=== PATIENT | male | born 1975 | race Caucasian/White ===

== ENCOUNTER 2018-11-08 15:26 | Emergency (ER) | payer MEDICARE, MEDICAID ==
[2018-11-08] MEDS ORDERED: Nicotine Inhaler* 10 MG AMP INH PRN (15:57)
--- NOTE | 2018-11-08 16:13 | ED ---
HPI Chest Pain - HPI Summary HPI Summary: A 43 y/o male presents to the ED c/o left-sided chest pain reaching 7/10 in severity. In the ED room, the patient has a pulse of 78 BPM, O2 saturation of 98 %, and blood pressure of 146/88. As per triage, "intermittent chest pain, points to sternal area. states he has had this before but has never been this bad. denies any other related symptoms. no cardiac history". According to the patient, he has been experiencing chest pain intermittently, lasting 10-20 seconds. Walking around alleviates his pain. He noted that he occasional hears voices because his medications were lowered. He further noted that he spoke to a counselor about it, in which his counselor stated that if it is not bothering him (which they are not) he will be okay. The voices do not tell him to hurt himself or anyone around him. They tell him to go brush his teeth when he doesn' t. Patient thinks he is anxious. PMHx of no DM, HTN, or HLD (seem high, but never officially diagnosed). SHx of no smoking, no recreational drugs, or ETOH. Also lives with girlfriend. Patient did not take any medications for his chest pain. - History of Current Complaint Chief Complaint: EDChestPainROMI Time Seen by Provider: 11/08/18 15:41 Hx Obtained From: Patient Onset/Duration: Started Hours Ago, Still Present Timing: Constant Initial Severity: Moderate Current Severity: Moderate Pain Intensity: 7 Pain Scale Used: 0-10 Numeric Chest Pain Location: Left Anterior Chest Pain Radiates: No Aggravating Factor(s): Nothing Alleviating Factor(s): Other: - WALKING AROUND Associated Signs and Symptoms: Positive: Chest Pain - Allergy/Home Medications Allergies/Adverse Reactions: Allergies Allergy/AdvReac Type Severity Reaction Status Date / Time Penicillins Allergy Hives Verified 11/08/18 15:33 Home Medications: Home Medications Paliperidone SUSTENNA* [Invega Sustenna*] 1 syringe IM WEEKLY 11/08/18 [History Confirmed 11/08/18] PMH/Surg Hx/FS Hx/Imm Hx Endocrine/Hematology History: Denies: Hx Diabetes Cardiovascular History: Denies: Hx Hypertension History: Reports: Other Problems/Disorders - NOCTURNAL INCONTINENCE Psychiatric History: Reports: Hx Anxiety, Hx Inpatient Treatment, Hx Community Mental Health Tx, Hx Schizophrenia Denies: Hx of Violent Episodes Against Others - Surgical History Surgery Procedure, Year, and Place: NO PRIOR SURGERIES NOTED. Infectious Disease History: No Infectious Disease History: Denies: Traveled Outside the [place] in Last 30 Days - Family History Known Family History: Negative: Diabetes - Social History Alcohol Use: None Substance Use Type: Reports: None Smoking Status (MU): Never Smoked Tobacco Review of Systems Negative: Fever Positive: Chest Pain Psychological: Other - NEGATIVE: SI AND HI Positive: Anxious, Other - POSITIVE: AUDITORY HALLUCINATIONS All Other Systems Reviewed And Are Negative: Yes Physical Exam - Summary Physical Exam Summary: GENERAL: Patient is a well-developed and nourished male who is lying comfortable in the stretcher. Patient is not in any acute respiratory distress. HEAD AND FACE: Normocephalic EYES: PERRLA, EOMI x 2. EARS: Hearing grossly intact. MOUTH: Oropharynx within normal limits. NECK: Supple, trachea is midline, no adenopathy, no JVD, no carotid bruit. CHEST: Symmetric, no tenderness at palpation LUNGS: Clear to auscultation bilaterally. No wheezing or crackles. CVS: Regular rate and rhythm, S1 and S2 present, no murmurs or gallops appreciated. ABDOMEN: Soft, non-tender. Bowel sounds are normal. No abdominal abnormal pulsations. EXTREMITIES: Full ROM in all major joints, no edema, no cyanosis or clubbing. NEURO: Alert and oriented x 3. No acute neurological deficits. Speech is normal and follows commands. SKIN: Dry and warm PSYCH: patient has auditory hallucinations. Patient denies any SI or HI. Patient noted that the voices do not lead into SI or HI. Triage Information Reviewed: Yes Vital Signs On Initial Exam: Initial Vitals Temp Pulse Resp BP Pulse Ox 98.2 F 82 16 151/91 94 11/08/18 15:28 11/08/18 15:28 11/08/18 15:28 11/08/18 15:28 11/08/18 15:28 Vital Signs Reviewed: Yes Diagnostics - Vital Signs Vital Signs Temp Pulse Resp BP Pulse Ox 11/08/18 15:44 80 22 146/88 98 11/08/18 15:43 74 31 95 11/08/18 15:28 98.2 F 82 16 151/91 94 - Laboratory Result Diagrams: 11/08/18 16:04 11/08/18 16:07 Lab Statement: Any lab studies that have been ordered have been reviewed, and results considered in the medical decision making process. - Radiology CXR Radiology Interpretation Completed By: Radiologist - No radiographic evidence for acute cardiopulmonary abnormality on this portable chest x-ray. ED PHYSICIAN REVIEWED THIS RADIOLOGY REPORT. - EKG 1538 Cardiac Rate: NL - 72 BPM EKG Rhythm: Sinus Rhythm - 72 BPM Summary of EKG Findings: NORMAL AXIS, NORMAL INTERVAL. Chest Pain Course/Dx - Course Course Of Treatment: A 43 y/o male presents to the ED c/o left-sided chest pain reaching 7/10 in severity. In the ED room, the patient has a pulse of 78 BPM, O2 saturation of 98%, and blood pressure of 146/88. According to the patient, he has been experiencing chest pain intermittently, lasting 10-20 seconds. Walking around alleviates his pain. He noted that he occasional hears voices because his medications were lowered. He further noted that he spoke to a counselor about it, in which his counselor stated that if it is not bothering him (which they are not) he will be okay. The voices do not tell him to hurt himself or anyone around him. They tell him to go brush his teeth when he doesn' t. Patient thinks he is anxious. Physical examination revealed patient has auditory hallucinations. Patient denies any SI or HI. Patient noted that the voices do not lead into SI or HI. A CXR revealed no radiographic evidence for acute cardiopulmonary abnormality on this portable chest x-ray. An EKG revealed NSR of 72 BPM, normal axis, normal interval. Hematology and urinalysis were done. Labs were all within normal limits. In the ED course, the patient received Nicotine. Patient will be signed out to Dr. Lundy via Dr. Gandhi, pending Troponin and disposition, upon shift change on 11/08/2018 at 1900. - Diagnoses Provider Diagnoses: Chest pain Discharge - Sign-Out/Discharge Documenting (check all that apply): Sign-Out Patient - JORGE Signing out patient TO: Emmy Lundy Receiving patient FROM: Arlene Gandhi - Discharge Plan Condition: Stable Disposition: HOME Patient Education Materials: Chest Pain (ED) Referrals: Dina Campos MD [Medical Doctor] - (Please follow up in 2-3 days.) Additional Instructions: RETURN TO THE EMERGENCY DEPARTMENT FOR CHANGING OR WORSENING SYMPTOMS. FOLLOW UP WITH PCP IN 1-2 DAYS. Please do a stress test as an outpatient with Dr. Campos. - Billing Disposition and Condition Condition: STABLE Disposition: Home - Attestation Statements Document Initiated by Wilfredoibmamadou: Yes Documenting Scribe: Nikunj Boyd Provider For Whom Taylor is Documenting (Include Credential): Arlene Gandhi MD Scribe Attestation: Nikunj De Oliveira, scribed for Arlene Gandhi MD on 11/09/18 at 0750. Scribe Documentation Reviewed: Yes Provider Attestation: The documentation as recorded by the Nikunj garcia accurately reflects the service I personally performed and the decisions made by me, Arlene Gandhi MD Status of Scribe Document: Viewed
[2018-11-08 16:29] LABS: INR 1.04 (0.77-1.02)
[2018-11-08 16:41] LABS: EGFR Non-African American 85.9 (>60)
[2018-11-08 17:07] LABS: Urine Appearance Clear; Urine Blood Negative (Negative); Urine Color Colorless; Urine Ketones Negative (Negative); Urine Protein Negative (Negative); Urine Specific Gravity 1.002 (1.010-1.030); Urine Urobilinogen Negative (Negative)
[2018-11-08 17:35] LABS: ABS Basophils 0 10^3/ul (0-0.2); ABS Eosinophils 0 10^3/ul (0-0.6); ABS Lymphocytes 1.3 10^3/ul (1.0-4.8); ABS Monocytes 0.5 10^3/ul (0-0.8); ABS Neutrophils 4.5 10^3/ul (1.5-7.7); Hematocrit 49 % (42-52); Hemoglobin 16.7 g/dl (14.0-18.0); Mean Corpuscular HGB Conc 34 g/dl (31-36); Mean Corpuscular Hemoglobin 30 pg (27-31); Mean Corpuscular Volume 88 fL (80-94); Mean Platelet Volume 7.9 fL (7.4-10.4); Platelet Count 193 10^3/ul (150-450); Red Blood Count 5.57 10^6/ul (4.00-5.40); Red Cell Distribution Width 14 % (10.5-15); White Blood Count 6.3 10^3/ul (3.5-10.8)
[2018-11-08 17:36] LABS: ABS Nucleated RBC 0 10^3/ul; Eosinophil % 0.6 %; Lymphocyte % 20.8 %; Nucleated Red Blood Cells % 0
--- NOTE | 2018-11-08 19:25 | ED ---
Progress - Progress Note Progress Note: This patient was signed out from Dr. Gandhi to Dr. Lundy, pending dispo, awaiting trop. Trop was 0.00. This patient will be discharged with dx of CP and instructions to take a stress test at an outpatient. Patient understands and is agreeable with this plan. Course/Dx - Course Course Of Treatment: A 43 y/o male presents to the ED c/o left-sided chest pain reaching 7/10 in severity. In the ED room, the patient has a pulse of 78 BPM, O2 saturation of 98%, and blood pressure of 146/88. According to the patient, he has been experiencing chest pain intermittently, lasting 10-20 seconds. Walking around alleviates his pain. He noted that he occasional hears voices because his medications were lowered. He further noted that he spoke to a counselor about it, in which his counselor stated that if it is not bothering him (which they are not) he will be okay. The voices do not tell him to hurt himself or anyone around him. They tell him to go brush his teeth when he doesn' t. Patient thinks he is anxious. Physical examination revealed patient has auditory hallucinations. Patient denies any SI or HI. Patient noted that the voices do not lead into SI or HI. A CXR revealed no radiographic evidence for acute cardiopulmonary abnormality on this portable chest x-ray. An EKG revealed NSR of 72 BPM, normal axis, normal interval. Hematology and urinalysis were done. Labs were all within normal limits. In the ED course, the patient received Nicotine. Patient will be signed out to Dr. Lundy via Dr. Gandhi, pending Troponin and disposition, upon shift change on 11/08/2018 at 1900. - Diagnoses Provider Diagnoses: Chest pain Discharge - Sign-Out/Discharge Documenting (check all that apply): Patient Departure - discharge - Discharge Plan Condition: Stable Disposition: HOME Patient Education Materials: Chest Pain (ED) Referrals: Dina Campos MD [Medical Doctor] - (Please follow up in 2-3 days.) Additional Instructions: RETURN TO THE EMERGENCY DEPARTMENT FOR CHANGING OR WORSENING SYMPTOMS. FOLLOW UP WITH PCP IN 1-2 DAYS. Please do a stress test as an outpatient with Dr. Campos. - Attestation Statements Document Initiated by Scribe: Yes Documenting Scribe: Jus De La Cruz Provider For Whom Scribe is Documenting (Include Credential): Emmy Lundy MD Scribe Attestation: I, Jus De La Cruz, scribed for Emmy Lundy MD on 11/08/18 at 2028. Status of Scribe Document: Ready
[2018-11-08 21:01] VITALS: BP 126/74
== END 2018-11-08 21:01 | disposition home or self-care (01) ==
LOC: ED 15:26
DX: R07.89 Other chest pain (principal); Z88.0 Allergy status to penicillin; F20.9 Schizophrenia, unspecified
CPT/HCPCS: 36415; 71045; 80053; 80307; 81003; 83605; 83735; 83880; 84484; 85025; 85610; 85730; 93005; 99283

== ENCOUNTER 2019-08-16 14:50 | Emergency (ER) | payer MEDICARE, MEDICAID ==
--- NOTE | 2019-08-16 16:39 | ED ---
Abdominal Pain/Male - HPI Summary HPI Summary: This patient is a 43 year old M presenting to [facility] with a chief complaint of intermittent abdominal pain since one year ago. Pt has no pain currently, but he had pain in the waiting room. Symptoms aggravated by movement. Symptoms alleviated by drinking water, and deep breaths. Patient reports constipation. - History of Current Complaint Chief Complaint: EDAbdPain Stated Complaint: UPPER ABD PAIN PER PT Time Seen by Provider: 08/16/19 16:26 Hx Obtained From: Patient Onset/Duration: Lasting Weeks, Resolved Timing: Intermittent, Lasting Weeks Severity Initially: Mild Severity Currently: None Pain Intensity: 0 Pain Scale Used: 0-10 Numeric Location: Diffuse, Flank Radiates: No Aggravating Factor(s): Movement Alleviating Factor(s): Other: - Drinking water, deep breaths Associated Signs And Symptoms: Positive: Constipation - Allergies/Home Medications Allergies/Adverse Reactions: Allergies Allergy/AdvReac Type Severity Reaction Status Date / Time ampicillin Allergy Rash Verified 08/16/19 14:53 Penicillins Allergy Hives Verified 11/08/18 15:33 PMH/Surg Hx/FS Hx/Imm Hx Endocrine/Hematology History: Denies: Hx Diabetes Cardiovascular History: Denies: Hx Hypertension History: Reports: Other Problems/Disorders - NOCTURNAL INCONTINENCE Psychiatric History: Reports: Hx Anxiety, Hx Inpatient Treatment, Hx Community Mental Health Tx, Hx Schizophrenia Denies: Hx of Violent Episodes Against Others - Surgical History Surgical History: None Surgery Procedure, Year, and Place: NO PRIOR SURGERIES NOTED. Infectious Disease History: No Infectious Disease History: Denies: Traveled Outside the [place] in Last 30 Days - Family History Known Family History: Negative: Diabetes - Social History Alcohol Use: None Substance Use Type: Reports: None Hx Tobacco Use: No Smoking Status (MU): Never Smoked Tobacco Review of Systems Negative: Fever Positive: Abdominal Pain, Other - Constipation All Other Systems Reviewed And Are Negative: Yes Physical Exam - Summary Physical Exam Summary: Appearance: The patient is well-nourished in no acute distress and in no acute pain. Skin: The skin is warm and dry, and skin color reflects adequate perfusion. HEENT: The head is normocephalic and atraumatic. The pupils are equal and reactive. The conjunctivae are clear and without drainage. Nares are patent and without drainage. Mouth reveals moist mucous membranes, and the throat is without erythema and exudate. The external ears are intact. The ear canals are patent and without drainage. The tympanic membranes are intact. Neck: The neck is supple with full range of motion and non-tender. There are no carotid bruits. There is no neck vein distension. Respiratory: Chest is non-tender. Lungs are clear to auscultation and breath sounds are symmetrical and equal. Cardiovascular: Heart is regular rate and rhythm. There is no murmur or rub auscultated. There is no peripheral edema and pulses are symmetrical and equal. Abdomen: RUQ tenderness. There are normal bowel sounds heard in all four quadrants and there is no organomegaly palpated. Musculoskeletal: There is no back tenderness noted. Extremities are non-tender with full range of motion. There is good capillary refill. There is no peripheral edema or calf tenderness elicited. Neurological: Patient is alert and oriented to person, place and time. The patient has symmetrical motor strength in all four extremities. Cranial nerves are grossly intact. Deep tendon reflexes are symmetrical and equal in all four extremities. Psychiatric: The patient has an appropriate affect and does not exhibit any anxiety or depression. Triage Information Reviewed: Yes Vital Signs On Initial Exam: Initial Vitals Temp Pulse Resp BP Pulse Ox 97.9 F 71 16 139/98 95 08/16/19 14:52 08/16/19 14:52 08/16/19 14:52 08/16/19 14:52 08/16/19 14:52 Vital Signs Reviewed: Yes Diagnostics - Vital Signs Vital Signs Temp Pulse Resp BP Pulse Ox 08/16/19 14:52 97.9 F 71 16 139/98 95 - Laboratory Result Diagrams: 08/16/19 16:48 08/16/19 16:44 Lab Statement: Any lab studies that have been ordered have been reviewed, and results considered in the medical decision making process. - CT Abdomen/Pelvis CT CT Interpretation Completed By: Radiologist Summary of CT Findings: Abdomen/Pelvis CT reveals, per radiologist, IMPRESSION: #. Negative for urolithiasis or hydronephrosis. #. Normal appendix documented. #. Mild diverticulosis of the colon without evidence for acute diverticulitis. #. Suggestion of a small mildly edematous epiploic appendage at the mid sigmoid colon which may represent mild appendagitis epiploica. The small size of the epiploic appendage would confer low risk for torsion of the appendix. ED physician has reviewed this radiology report. Re-Evaluation - Re-Evaluation First Eval Re-Evaluation Time: 18:34 Comment: Discussed results with pt. Abdominal Pain Male Course/Dx - Course Course Of Treatment: Mr. Velasquez presented with some vague abdominal pain recurring over the last year or so. He was nontoxic in appearance with stable vitals. His abdomen is soft nontender with normoactive bowel sounds. Labs are unremarkable and a CT showed appendicitis epiploica. - Diagnoses Provider Diagnoses: Epiploic appendagitis Discharge ED - Sign-Out/Discharge Documenting (check all that apply): Patient Departure - Discharge Patient Received Moderate/Deep Sedation with Procedure: No - Discharge Plan Condition: Stable Disposition: HOME Referrals: Kolby Niño MD [Primary Care Provider] - 3 Days Additional Instructions: Follow up with primary care provider in 2-3 days. RETURN TO THE ED FOR ANY NEW OR WORSENING SYMPTOMS. Epiploic appendagitis is a benign and self-limiting condition. Complete resolution without surgical intervention usually occurs between 3 to 14 days [11 ,28,33,34]. The risk of recurrence has not been described but is probably very low. Rarely, inflamed appendages can adhere to the abdominal wall or other viscera predisposing to intestinal obstruction and intussusception [39]. Inflamed and necrotic appendages can also rarely progress to abscess formation. There are other less common conditions affecting the epiploic appendices. They can slide into a femoral, umbilical, or inguinal hernia sac where they may remain without causing symptoms or (less commonly) incarcerate with or without torsion [13,40]. The appendices can also calcify, cast off, and lie free as foreign bodies (corpora aliena) in the peritoneal cavity or become surrounded by omental adhesions [20]. Epiploic appendages are thought to represent the most frequent source of intraperitoneal loose bodies, which are usually found in the pelvis [41]. These may become secondarily attached elsewhere in the abdomen and can be confused with a neoplastic process. We recommend initial conservative management rather than surgery in patients with epiploic appendagitis confirmed by abdominal imaging (Grade 1C). We typically treat patients with oral anti-inflammatory medications (eg, ibuprofen 600 mg PO every eight hours for four to six days) and if needed a short course of opiates (acetaminophen/codeine 300/30 every six hours) for four to seven days. We reserve surgical management for patients whose symptoms fail to improve with conservative management, those with new or worsening symptoms (eg, high fever, progressive pain, nausea, vomiting, or inability to tolerate an oral diet), or complications (eg, intussusception, bowel obstruction, abscess) that cannot be managed nonoperatively. (See 'Management' above.) ?Epiploic appendagitis is a benign and self-limiting condition. Complete resolution without surgical intervention usually occurs between 3 to 14 days. Complications (eg, intussusception, bowel obstruction, abscess) are rare. - Billing Disposition and Condition Condition: STABLE Disposition: Home - Attestation Statements Document Initiated by Taylor: Yes Documenting Wilfredoibmamadou: Karmen Franklin Provider For Whom Taylor is Documenting (Include Credential): Mookie Trammell MD Scribe Attestation: Karmen De Oliveira, scribed for Mookie Trammell MD on 08/16/19 at 2037. Scribe Documentation Reviewed: Yes Provider Attestation: The documentation as recorded by the Karmen garcia accurately reflects the service I personally performed and the decisions made by Mookie santos MD Status of Scribmamadou Document: Viewed
[2019-08-16 16:56] LABS: ABS Eosinophils 0.1 10^3/ul (0-0.6); ABS Lymphocytes 1.4 10^3/ul (1.0-4.8); ABS Monocytes 0.5 10^3/ul (0-0.8); ABS Neutrophils 3.5 10^3/ul (1.5-7.7); Eosinophil % 1.2 %; Hematocrit 48 % (42-52); Hemoglobin 16.5 g/dL (14.0-18.0); Lymphocyte % 25.6 %; Mean Corpuscular HGB Conc 35 g/dL (31-36); Mean Corpuscular Hemoglobin 30 pg (27-31); Mean Corpuscular Volume 88 fL (80-94); Mean Platelet Volume 7.3 fL (7.4-10.4); Nucleated Red Blood Cells % 0.1; Platelet Count 171 10^3/uL (150-450); Red Blood Count 5.48 10^6 /uL (4.18-5.48); Red Cell Distribution Width 13 % (10-15); White Blood Count 5.5 10^3/uL (3.5-10.8)
[2019-08-16 17:09] LABS: Albumin 4.3 g/dL (3.2-5.2); Calcium 9.1 mg/dL (8.6-10.3); Total Bilirubin 0.7 mg/dL (0.2-1.0)
[2019-08-16 17:16] LABS: BUN/Creatinine Ratio 17.5 (8-20); C Reactive Protein 1.5 mg/L (<8.01); EGFR African American 95.8 (>60); EGFR Non-African American 79.2 (>60); Globulin 2.2 g/dL (2-4); Total Protein 6.5 g/dL (6.4-8.9)
[2019-08-16 17:22] LABS: Potassium 3.9 mmol/L (3.5-5.0)
[2019-08-16 17:47] LABS: Urine Appearance Clear; Urine Bilirubin Negative (Negative); Urine Blood Negative (Negative); Urine Color Yellow; Urine Glucose Negative (Negative); Urine Ketones Negative (Negative); Urine Nitrite Negative (Negative); Urine Protein Negative (Negative); Urine Specific Gravity 1.014 (1.010-1.030); Urine Urobilinogen Negative (Negative)
[2019-08-16 19:06] VITALS: BP 128/86
== END 2019-08-16 19:05 | disposition home or self-care (01) ==
LOC: ED 14:50
DX: K63.89 Other specified diseases of intestine (principal); K57.30 Diverticulosis of large intestine without perforation or abscess without bleeding; F41.9 Anxiety disorder, unspecified; Z79.899 Other long term (current) drug therapy; Z88.1 Allergy status to other antibiotic agents; Z88.0 Allergy status to penicillin
CPT/HCPCS: 36415; 74176; 80053; 81003; 83605; 83690; 85025; 86140; 99282

== ENCOUNTER 2020-01-30 20:57 | Emergency (ER) | payer MEDICARE, MEDICAID ==
--- OUTSIDE RECORDS SUMMARY | 2020-01-30 21:15 | XMS REPORT ---
:1975 Author Organization [facility] Care Team Providers Name Role Phone KIMBERLYRIVER Primary Care Physician Unavailable Allergies, Adverse Reactions, Alerts Allergy Code CodeSystem Reaction Severity Criticality Status Start Substance Date Moderate Medications Medication Medication Medication Start Stop Route Dose Status Fill Code CodeSystem Date Date Instructions Invega 256271 RxNorm IM 234 active Inject 1 syringe Sustenna 7-23 01-07 mg/1.5 intramuscularly mL 1 every four weeks syringe for 28 day(s) every four weeks sertraline 271245 RxNorm 2019- oral 100 mg completed for 30 1-16 04-12 tablet day(s) sertraline 173890 RxNorm 2019- oral 100 mg 1 active Take 1 tablet 4-12 09-25 tablet once a day for once a 30 day(s) day Invega 157126 RxNorm 2017-12 IM 234 completed for 28 Sustenna 2-05 07-23 mg/1.5 day(s) mL syringe risperidone 407875 RxNorm 2017-12 2019- oral 2 mg completed for 30 0-12 04-12 tablet day(s) risperidone 033914 RxNorm 2019- oral 2 mg 1 completed Take 1 tablet 03-13 07-11 tablet once a day for once a 30 day(s) day Problems Problem Name Code CodeSystem Alternate Alternate Start End Status Narrative Code CodeSystem Date Date Schizoaffective [id number] SNOMED-CT Active disorder, 3-22 Depressive type Relevant diagnostic tests/laboratory data Narrative No Information Procedures Procedure Code CodeSystem Target Date of Status Service Device Device Device Name Site Procedure Delivery Code Name UID Location Comprehensiv 534274 SNOMED-CT () 2019-03-02 complete Mental e medication [address] minutes [address] [place], [place], [id number] [phone] Comprehensiv 816105 SNOMED-CT () 2019-03-31 complete Mental e medication 0 d Health- services, [place] [address] [place], [place], [id number] [phone] Comprehensiv 015453 SNOMED-CT () 2019-04-28 complete Mental e medication 0 d Health- services, [place] [address] [place], [place], [id number] [phone] Comprehensiv 166171 SNOMED-CT () 2019-05-26 complete Mental e medication 0 d Health- services, [place] [address] [place], [place], [id number] [phone] Comprehensiv 996115 SNOMED-CT () 2019-06-23 complete Mental e medication 0 d Health- services, [place] [address] [place], [place], [id number] [phone] Comprehensiv 705102 SNOMED-CT () 2019-07-21 complete Mental e medication 0 d Health- services, [place] [address] [place], [place], [id number] [phone] Comprehensiv 742646 SNOMED-CT () 2019-08-18 complete Mental e medication 0 d Health- services, [place] [address] [place], [place], [id number] [phone] Comprehensiv 210905 SNOMED-CT () 2019-09-15 complete Mental e medication 0 d Health- services, [place] [address] [place], [place], [id number] [phone] Comprehensiv 346821 SNOMED-CT () 2019-10-13 complete Mental e medication 0 d Health- services, [place] [address] [place] [address] [place] [address], [id number] [phone] Comprehensiv 092740 SNOMED-CT () 2019-11-10 complete Mental e medication 0 d Health- services, [place] [address] [place], [place], [id number] [phone] Comprehensiv 340479 SNOMED-CT () 2019-12-08 complete Mental e medication 0 d Health- services, [place] [address] [place] [address] [place] [address], [id number] [phone] Psychotherap 560607 SNOMED-CT () 2019-11-10 complete Mental y, 45 04 d Health- minutes with [address], [id number] [phone] Psychotherap 229982 SNOMED-CT () 2019-09-29 complete Mental y, 45 04 d Health- minutes with [address], [id number] [phone] Psychotherap 429839 SNOMED-CT () 2019-09-01 complete Mental y, 45 04 d Health- minutes with [address], [id number] [phone] Psychotherap 335125 SNOMED-CT () 2019-09-15 complete Mental y, 45 04 d Health- minutes with [address], [id number] [phone] Psychotherap 386515 SNOMED-CT () 2019-08-18 complete Mental y, 45 04 d Health- minutes with [address], [id number] [phone] Psychotherap 345565 SNOMED-CT () 2019-06-09 complete Mental y, 45 04 d Health- minutes with [address], [id number] [phone] Psychotherap 088399 SNOMED-CT () 2019-07-07 complete Mental y, 45 04 d Health- minutes with [address], [id number] [phone] Psychotherap 451350 SNOMED-CT () 2019-07-21 complete Mental y, 45 04 d Health- minutes with [address], [id number] [phone] Psychotherap 249100 SNOMED-CT () 2019-03-17 complete Mental y, 45 04 d Health- minutes with [address], [id number] [phone] Psychotherap 808973 SNOMED-CT () 2019-03-31 complete Mental y, 45 04 d Health- minutes with [facility] patient [address], [id number] [phone] Office [place] [id number] SNOMED-CT () 2019-05-28 complete Mental other 7 d Health- outpatient [place] visit for [address], [facility], [facility], established [id number] patient, [phone] which requires at least 2 of these 3 alves components: An expanded problem focused history; An expanded problem focused examination; Medical decision making of [facility] Office [place] 133273 SNOMED-CT () 2019-08-25 complete Mental other 7 d Health- outpatient [place] visit for [address], [facility], established [id number] patient, [phone] which requires at least 2 of these 3 alves components: An expanded problem focused history; An expanded problem focused examination; Medical decision making of [facility] SNOMED-CT () 2019-03-02 complete Mental d [address], [id number] [phone] SNOMED-CT () 2019-12-08 complete Mental d Health- [address], [id number] [phone] Encounters/Encounter Diagnoses Encounter Name Encounter Diagnosis Diagnosis Name Diagnosis Date of Service Code Code CodeSystem Diagnosis Delivery Location Psychotherapy - [id number] Schizoaffective SNOMED-CT 2019-12-08 Behavioral Individual 30 disorder, Health min Depressive type Clinic [address] [place] [address], [phone] Vital Signs No Information Social History Element Description Description Start End Code CodeSystem AdditionalInfo Date Date SexAssignedAtBirth Male 1974-1 M AdministrativeGender 0-23 Hospital Discharge Instructions Reason For Referral Medical Equipment FDA Assessments
--- OUTSIDE RECORDS SUMMARY | 2020-01-30 21:15 | XMS REPORT ---
:1975 Author Organization [facility] Care Team Providers Name Role Phone KIMBERLYRIVRE Primary Care Physician Unavailable Allergies, Adverse Reactions, Alerts Allergy Code CodeSystem Reaction Severity Criticality Status Start Substance Date Moderate Medications Medication Medication Medication Start Stop Route Dose Status Fill Code CodeSystem Date Date Instructions sertraline 630212 RxNorm 2019- oral 100 mg completed for 30 1-16 04-12 tablet day(s) risperidone 316130 RxNorm 2019- oral 2 mg 1 completed Take 1 tablet 4-12 07-11 tablet once a day for once a 30 day(s) day risperidone 406627 RxNorm 2017-12- oral 2 mg completed for 30 0-12 04-12 tablet day(s) sertraline 995719 RxNorm 2019- oral 100 mg 1 active Take 1 tablet 4-12 09-25 tablet once a day for once a 30 day(s) day Invega 467521 RxNorm 2017-12- IM 234 completed for 28 Sustenna 2-05 07-23 mg/1.5 day(s) mL syringe Invega 724033 RxNorm 2019- IM 234 active Inject 1 syringe Sustenna 7-23 01-07 mg/1.5 intramuscularly mL 1 every four weeks syringe for 28 day(s) every four weeks Problems Problem Name Code CodeSystem Alternate Alternate Start End Status Narrative Code CodeSystem Date Date Schizoaffective [id number] SNOMED-CT Active disorder, 3-22 Depressive type Relevant diagnostic tests/laboratory data Narrative No Information Procedures Procedure Code CodeSystem Target Date of Status Service Device Device Device Name Site Procedure Delivery Code Name UID Location Comprehensiv [id number] SNOMED-CT () 2019-06-23 complete Mental e medication [address] minutes [address] [place], [place], [id number] [phone] Psychotherap 980427 SNOMED-CT () 2019-09-15 complete Mental y, 45 04 d Health- minutes with [place] patient [address], [phone] Psychotherap 409574 SNOMED-CT () 2019-12-22 complete Mental y, 45 04 d Health- minutes with [place] patient [address], [phone] Psychotherap 488015 SNOMED-CT () 2019-03-17 complete Mental y, 45 04 d Health- minutes with [place] patient [address], [id number] [phone] Comprehensiv 703693 SNOMED-CT () 2019-12-08 complete Mental e medication 0 d Health- services, [place] per [address], [id number] [phone] Psychotherap 789258 SNOMED-CT () 2019-08-18 complete Mental y, 45 04 d Health- minutes with [place] patient [address], [id number] [phone] Psychotherap 283395 SNOMED-CT () 2019-09-01 complete Mental y, 45 04 d Health- minutes with [place] patient [address], [id number] [phone] Office or 678298 SNOMED-CT () 2019-12-29 complete Mental other 6 d Health- outpatient [place] visit for [address], established [id number] patient, [phone] which requires at least 2 of these 3 alves components: A problem focused history; A problem focused examination; [facility] medical decision making. Counselin SNOMED-CT () 2019-12-08 complete Mental d Health- [address], [id number] [phone] Office or 724003 SNOMED-CT () 2019-05-28 complete Mental other 7 d Health- outpatient [place] visit for [address], [facility] [id number] patient, [phone] which requires at least 2 of these 3 alves components: An expanded problem focused history; An expanded problem focused examination; Medical decision making of low Comprehensiv 499594 SNOMED-CT () 2019-09-15 complete Mental e medication 0 d Health- services, [place] [address] [place] [address], [id number] [phone] Comprehensiv 555746 SNOMED-CT () 2019-03-02 complete Mental e medication 0 d Health- services, [place] [address] [place] [address], [id number] [phone] Comprehensiv 927760 SNOMED-CT () 2019-04-28 complete Mental e medication 0 d Health- services, [place] [address] [place] [address], [id number] [phone] Comprehensiv 363547 SNOMED-CT () 2019-03-31 complete Mental e medication 0 d Health- services, [place] [address] [place] [address] [place] [address], [id number] [phone] Psychotherap 816548 SNOMED-CT () 2019-07-21 complete Mental y, 45 04 d Health- minutes with [place] patient [address], [phone] Comprehensiv 948116 SNOMED-CT () 2019-10-13 complete Mental e medication 0 d Health- services, [place] [address] [place] [address] [place] [address], [phone] Psychotherap 402314 SNOMED-CT () 2019-11-10 complete Mental y, 45 04 d Health- minutes with [place] patient [address], [id number] [phone] Comprehensiv 762807 SNOMED-CT () 2019-11-10 complete Mental e medication 0 d Health- services, [place] [address] [place] [address] [place] [address], [id number] [phone] Comprehensiv 142642 SNOMED-CT () 2019-05-26 complete Mental e medication 0 d Health- services, [place] [address] [place] [address] [place] [address], [id number] [phone] SNOMED-CT () 2019-03-02 complete Mental d Health- [place] [address], [id number] [phone] Psychotherap 681625 SNOMED-CT () 2019-07-07 complete Mental y, 45 04 d Health- minutes with [place] patient [address], [id number] [phone] Comprehensiv 300286 SNOMED-CT () 2019-07-21 complete Mental e medication 0 d Health- services, [place] per [address], [id number] [phone] Psychotherap 504597 SNOMED-CT () 2019-03-31 complete Mental y, 45 04 d Health- minutes with [place] patient [address], [id number] [phone] Psychotherap 210005 SNOMED-CT () 2020-01-05 complete Mental y, 45 04 d Health- minutes with [place] patient [address], [id number] [phone] Comprehensiv 699236 SNOMED-CT () 2020-01-05 complete Mental e medication 0 d Health- services, [place] per [address], [id number] [phone] Psychotherap 821137 SNOMED-CT () 2019-06-09 complete Mental y, 45 04 d Health- minutes with [place] patient [address], [id number] [phone] Psychotherap 325653 SNOMED-CT () 2019-09-29 complete Mental y, 45 04 d Health- minutes with [place] patient [address], [id number] [phone] Office or 949305 SNOMED-CT () 2019-08-25 complete Mental other 7 d Health- outpatient [place] visit for [address], [place], established [id number] patient, [phone] which requires at least 2 of these 3 alves components: An expanded problem focused history; An expanded problem focused examination; Medical decision making of low Comprehensiv 094338 SNOMED-CT () 2019-08-18 complete Mental e medication 0 d Health- services, [place] [address] [place], [place], [id number] [phone] Encounters/Encounter Diagnoses Encounter Name Encounter Diagnosis Diagnosis Name Diagnosis Date of Service Code Code CodeSystem Diagnosis Delivery Location Psychotherapy - [id number] Schizoaffective SNOMED-CT 2020-01-05 Behavioral Individual 30 disorder, Health min Depressive type Clinic [address] [place], [place], [phone] Vital Signs No Information Social History Element Description Description Start End Code CodeSystem AdditionalInfo Date Date SexAssignedAtBirth Male 1974- M AdministrativeGender 0-23 Hospital Discharge Instructions Reason For Referral Medical Equipment FDA Assessments
--- OUTSIDE RECORDS SUMMARY | 2020-01-30 21:15 | XMS REPORT ---
:1975 Author Organization [facility] Care Team Providers Name Role Phone RIVER HARRIS Primary Care Physician Unavailable Allergies, Adverse Reactions, Alerts Allergy Code CodeSystem Reaction Severity Criticality Status Start Substance Date Moderate Medications Medication Medication Medication Start Stop Route Dose Status Fill Code CodeSystem Date Date Instructions risperidone 692869 RxNorm 2019- oral 2 mg 1 completed Take 1 tablet 4-12 07-11 tablet once a day for once a 30 day(s) day risperidone 156474 RxNorm 2017-12 2019- oral 2 mg completed for 30 0-12 04-12 tablet day(s) Invega 762989 RxNorm 2019- IM 234 active Inject 1 syringe Sustenna 7-23 01-07 mg/1.5 intramuscularly mL 1 every four weeks syringe for 28 day(s) every four weeks sertraline 155445 RxNorm 2019- oral 100 mg 1 active Take 1 tablet 4-12 09-25 tablet once a day for once a 30 day(s) day Invega 407737 RxNorm 2017-12- IM 234 completed for 28 Sustenna 2-05 07-23 mg/1.5 day(s) mL syringe sertraline 431975 RxNorm 2019- oral 100 mg completed for 30 1-16 04-12 tablet day(s) Problems Problem Name Code CodeSystem Alternate Alternate Start End Status Narrative Code CodeSystem Date Date Schizoaffective [id number] SNOMED-CT Active disorder, 3-22 Depressive type Relevant diagnostic tests/laboratory data Narrative No Information Procedures Procedure Code CodeSystem Target Date of Status Service Device Device Device Name Site Procedure Delivery Code Name UID Location Psychotherap 129208 SNOMED-CT () 2019-12-22 complete Mental y, 45 04 d Health- minutes with [address], [id number] [phone] Psychotherap 361356 SNOMED-CT () 2019-11-10 complete Mental y, 45 04 d Health- minutes with [address], [id number] [phone] Psychotherap 350720 SNOMED-CT () 2019-09-29 complete Mental y, 45 04 d Health- minutes with [address], [id number] [phone] Psychotherap 087727 SNOMED-CT () 2019-09-01 complete Mental y, 45 04 d Health- minutes with [address], [id number] [phone] Psychotherap 357778 SNOMED-CT () 2019-09-15 complete Mental y, 45 04 d Health- minutes with [address], [id number] [phone] Psychotherap 247782 SNOMED-CT () 2019-08-18 complete Mental y, 45 04 d Health- minutes with [address], [id number] [phone] Psychotherap 749789 SNOMED-CT () 2019-06-09 complete Mental y, 45 04 d Health- minutes with [address], [phone] Psychotherap 631179 SNOMED-CT () 2019-07-07 complete Mental y, 45 04 d Health- minutes with [address], [id number] [phone] Psychotherap 466782 SNOMED-CT () 2019-07-21 complete Mental y, 45 04 d Health- minutes with [address], [id number] [phone] Psychotherap 259981 SNOMED-CT () 2019-03-17 complete Mental y, 45 04 d Health- minutes with [address], [id number] [phone] Psychotherap 638644 SNOMED-CT () 2019-03-31 complete Mental y, 45 04 d Health- minutes with [address], [id number] [phone] Comprehensiv 500130 SNOMED-CT () 2019-03-02 complete Mental e medication 0 d Health- services, [place] [address] [place], [place], [id number] [phone] Comprehensiv 651534 SNOMED-CT () 2019-03-31 complete Mental e medication 0 d Health- services, [place] per [address] [place] [address] [place] [address], [id number] [phone] Comprehensiv 446562 SNOMED-CT () 2019-04-28 complete Mental e medication 0 d Health- services, [place] per [place] [address] [place], [place], [phone] Comprehensiv 176056 SNOMED-CT () 2019-05-26 complete Mental e medication 0 d Health- services, [place] per [place] [address] [place], [place], [id number] [phone] Comprehensiv 085086 SNOMED-CT () 2019-06-23 complete Mental e medication 0 d Health- services, [place] per [place] [address] [place], [place], [phone] [phone] Comprehensiv 861043 SNOMED-CT () 2019-07-21 complete Mental e medication 0 d Health- services, [place] per [place] [address] [place], [place], [id number] [phone] Comprehensiv 474014 SNOMED-CT () 2019-08-18 complete Mental e medication 0 d Health- services, [place] per [address] [place] [address] [place] [address], [id number] [phone] Comprehensiv 442012 SNOMED-CT () 2019-09-15 complete Mental e medication 0 d Health- services, [place] per [address] [place] [address] [place] [address], [id number] [phone] Comprehensiv 272758 SNOMED-CT () 2019-10-13 complete Mental e medication 0 d Health- services, [place] per [place] [address] [place], [place], [phone] Comprehensiv 934145 SNOMED-CT () 2019-11-10 complete Mental e medication 0 d Health- services, [place] per [place] [address] [place] [address], [phone] [phone] Comprehensiv 609999 SNOMED-CT () 2019-12-08 complete Mental e medication 0 d Health- services, [place] per [place] [address] [place] [address], [phone] Office or 086689 SNOMED-CT () 2019-05-28 complete Mental other 7 d Health- outpatient [place] visit for [address], [facility], established [id number] patient, [phone] which requires at least 2 of these 3 alves components: An expanded problem focused history; An expanded problem focused examination; Medical decision making of [facility] Office or [id number] SNOMED-CT () 2019-08-25 complete Mental other 7 d Health- outpatient [place] visit for [address], [facility], established [id number] patient, [phone] which requires at least 2 of these 3 alves components: An expanded problem focused history; An expanded problem focused examination; Medical decision making of low SNOMED-CT () 2019-03-02 complete Mental d [address], [id number] [phone] SNOMED-CT () 2019-12-08 complete Mental d [address], [phone] Encounters/Encounter Diagnoses Encounter Name Encounter Diagnosis Diagnosis Name Diagnosis Date of Service Code Code CodeSystem Diagnosis Delivery Location Psychotherapy [id number] Schizoaffective SNOMED-CT 2019-12-22 Behavioral Individual 30 disorder, Health min Depressive type Clinic [address] [place] [address], [phone] Vital Signs No Information Social History Element Description Description Start End Code CodeSystem AdditionalInfo Date Date SexAssignedAtBirth Male 1974- M AdministrativeGender 0-23 Hospital Discharge Instructions Reason For Referral Medical Equipment FDA Assessments
--- OUTSIDE RECORDS SUMMARY | 2020-01-30 21:15 | XMS REPORT ---
:1975 Author Organization [facility] Care Team Providers Name Role Phone KIMBERLYRIVER Primary Care Physician Unavailable Allergies, Adverse Reactions, Alerts Allergy Code CodeSystem Reaction Severity Criticality Status Start Substance Date Moderate Medications Medication Medication Medication Start Stop Route Dose Status Fill Code CodeSystem Date Date Instructions Invega 433066 RxNorm 2017-12- IM 234 completed for 28 Sustenna 2-05 07-23 mg/1.5 day(s) mL syringe risperidone 456957 RxNorm 2019- oral 2 mg 1 completed Take 1 tablet 4-12 07-11 tablet once a day for once a 30 day(s) day Invega 212566 RxNorm 2019- IM 234 active Inject 1 syringe Sustenna 7-23 01-07 mg/1.5 intramuscularly mL 1 every four weeks syringe for 28 day(s) every four weeks risperidone 089523 RxNorm 2017-12 2019- oral 2 mg completed for 30 0-12 04-12 tablet day(s) sertraline 594164 RxNorm 2019- oral 100 mg 1 active Take 1 tablet 4-12 09-25 tablet once a day for once a 30 day(s) day sertraline 847568 RxNorm 2019- oral 100 mg completed for 30 1-16 04-12 tablet day(s) Problems Problem Name Code CodeSystem Alternate Alternate Start End Status Narrative Code CodeSystem Date Date Schizoaffective 25938789 SNOMED-CT Active disorder, 3-22 Depressive type Relevant diagnostic tests/laboratory data Narrative No Information Procedures Procedure Code CodeSystem Target Date of Status Service Device Device Device Name Site Procedure Delivery Code Name UID Location Comprehensiv 262797 SNOMED-CT () 2019-08-18 complete Mental e medication [address] minutes [address] [place], [place], [id number] [phone] Psychotherap 242090 SNOMED-CT () 2019-03-31 complete Mental y, 45 04 d Health- minutes with [place] patient [address], [id number] [phone] Comprehensiv 302859 SNOMED-CT () 2019-12-08 complete Mental e medication 0 d Health- services, [place] per [address], [id number] [phone] Comprehensiv 889639 SNOMED-CT () 2019-06-23 complete Mental e medication 0 d Health- services, [place] per [address], [id number] [phone] Psychotherap [id number] SNOMED-CT () 2019-09-15 complete Mental y, 45 04 d Health- minutes with [place] patient [address], [id number] [phone] Psychotherap [id number] SNOMED-CT () 2019-12-22 complete Mental y, 45 04 d Health- minutes with [place] patient [address], [id number] [phone] Psychotherap [id number] SNOMED-CT () 2019-03-17 complete Mental y, 45 04 d Health- minutes with [place] patient [address], [id number] [phone] SNOMED-CT () 2019-12-08 complete Mental d Health- [place], [id number] [phone] Psychotherap 556222 SNOMED-CT () 2019-09-01 complete Mental y, 45 04 d Health- minutes with [place] patient [address], [id number] [phone] Psychotherap 511607 SNOMED-CT () 2019-08-18 complete Mental y, 45 04 d Health- minutes with [place] patient [address], [id number] [phone] Office [place] [id number] SNOMED-CT () 2019-12-29 complete Mental other 6 d Health- outpatient [place] visit for [address], of an [place], established [id number] patient, [id number] which requires at least 2 of these 3 alves components: A problem focused history; A problem focused examination; Straightforw neel medical decision making. Josein Psychotherap [id number] SNOMED-CT () 2019-11-10 complete Mental y, 45 04 d Health- minutes with [place] patient [address], [id number] [phone] Comprehensiv 475492 SNOMED-CT () 2019-11-10 complete Mental e medication 0 d Health- services, [place] [address] [place] [address] [place] [address], [id number] [phone] Psychotherap [id number] SNOMED-CT () 2019-07-21 complete Mental y, 45 04 d Health- minutes with [place] patient [address], [id number] [phone] Comprehensiv 220864 SNOMED-CT () 2019-10-13 complete Mental e medication 0 d Health- services, [place] [address] [place] [address], [id number] [phone] Comprehensiv 955838 SNOMED-CT () 2019-03-31 complete Mental e medication 0 d Health- services, [place] [address] [place] minutes [address] [place] [address], [id number] [phone] Comprehensiv 098985 SNOMED-CT () 2019-04-28 complete Mental e medication 0 d Health- services, [place] [address] [place] [address] [place] [address], [id number] [phone] Office or [id number] SNOMED-CT () 2019-05-28 complete Mental other 7 d Health- outpatient [place] visit for [address], of an [place], established [id number] patient, [id number] which requires at least 2 of these 3 alves components: An expanded problem focused history; An expanded problem focused examination; Medical decision making of low Comprehensiv 455231 SNOMED-CT () 2019-09-15 complete Mental e medication 0 d Health- services, [place] [address] [place] [address], [phone] Comprehensiv [id number] SNOMED-CT () 2019-03-02 complete Mental e medication 0 d Health- services, [place] per [address], [phone] [phone] Comprehensiv 529056 SNOMED-CT () 2019-05-26 complete Mental e medication 0 d Health- services, [place] [address] [place] [address], [id number] [phone] Psychotherap [id number] SNOMED-CT () 2019-07-07 complete Mental y, 45 04 d Health- minutes with [place] patient [address], [id number] [phone] Comprehensiv [id number] SNOMED-CT () 2019-07-21 complete Mental e medication 0 d Health- services, [place] per [address], [phone] SNOMED-CT () 2019-03-02 complete Mental d Health- [place] [address], [phone] Office or [id number] SNOMED-CT () 2019-08-25 complete Mental other 7 d Health- outpatient [place] visit for [address], of an [facility] established [id number] patient, [id number] which requires at least 2 of these 3 alves components: An expanded problem focused history; An expanded problem focused examination; Medical decision making of low Psychotherap [id number] SNOMED-CT () 2019-06-09 complete Mental y, 45 04 d Health- minutes with [place] patient [address], [phone] Psychotherap [id number] SNOMED-CT () 2019-09-29 complete Mental y, 45 04 d Health- minutes with [place] patient [address], [id number] [phone] Encounters/Encounter Diagnoses Encounter Encounter Diagnosis Diagnosis Name Diagnosis Date of Service Name Code Code CodeSystem Diagnosis Delivery Location - [id number] Schizoaffective SNOMED-CT 2019-12-29 Behavioral Established disorder, Health patient 10 Depressive type Clinic [address] [place], [place], [id number] Vital Signs No Information Social History Element Description Description Start End Code CodeSystem AdditionalInfo Date Date SexAssignedAtBirth Male 1974-12 M AdministrativeGender 0-23 Hospital Discharge Instructions Reason For Referral Medical Equipment FDA Assessments
--- NOTE | 2020-01-30 21:44 | ED ---
Back Pain - HPI Summary HPI Summary: 44 year old M arriving via private car to [facility] complains of worsening sharp right sided rib pain and cough x2 weeks. Patient states he has had right sided rib pain x1 year. He was seen over the summer and referred to physical therapy. PT told him they weren't able to help him because they thought "it was on the inside." Patient had CT scan done on 08/16/2019 which showed possible epiploic appendage of mid sigmoid colon. Lab work was otherwise unremarkable. Patient additionally complains of LUQ pain. Patient denies vomiting. The patient rates the pain 6/10 in severity. Symptoms aggravated by coughing, sneezing, position change. Symptoms are not aggravated by eating. Symptoms alleviated by Alleve. Girlfriend has been sick. Medications reviewed. Allergies noted. Home Medications Medication Instructions Recorded Confirmed Type Sertraline* [Zoloft*] 100 mg PO DAILY 06/22/13 11/08/18 History risperiDONE TAB* [Risperdal*] 2 mg PO DAILY 06/22/13 11/08/18 History Paliperidone SUSTENNA* [Invega 1 syringe IM WEEKLY 11/08/18 11/08/18 History Sustenna*] - History of Current Complaint Chief Complaint: EDBackInjuryPain Stated Complaint: BACK AND SIDE PAIN PER PT Time Seen by Provider: 01/30/20 21:41 Hx Obtained From: Patient Onset/Duration: Lasting Weeks - 2, Still Present Onset/Duration: Started Weeks Ago, Still Present Timing: Constant Severity Currently: Moderate Pain Intensity: 6 Pain Scale Used: 0-10 Numeric Character: Sharp Aggravating Symptom(s): Cough, Other - sneezing, position change Alleviating Symptom(s): OTC Meds - Alleve Associated Signs And Symptoms: Positive: Negative - vomiting, Other - LUQ pain - Allergies/Home Medications Allergies/Adverse Reactions: Allergies Allergy/AdvReac Type Severity Reaction Status Date / Time ampicillin Allergy Rash Verified 01/30/20 21:01 Penicillins Allergy Hives Verified 01/30/20 21:01 Home Medications: Home Medications Sertraline* [Zoloft*] 100 mg PO DAILY 06/22/13 [History Confirmed 11/08/18] risperiDONE TAB* [Risperdal*] 2 mg PO DAILY 06/22/13 [History Confirmed 11/08/18 ] Paliperidone SUSTENNA* [Invega Sustenna*] 1 syringe IM WEEKLY 11/08/18 [History Confirmed 11/08/18] Benzonatate CAP* [Tessalon 100 MG CAP*] 100 mg PO TID PRN 10 Days #30 cap [Rx] Ibuprofen TAB* [Motrin TAB* 800 MG] 800 mg PO TID PRN 10 Days #30 tab 01/30/20 [ Rx] PMH/Surg Hx/FS Hx/Imm Hx Endocrine/Hematology History: Denies: Hx Diabetes Cardiovascular History: Denies: Hx Hypertension Respiratory History: Denies: Hx Asthma History: Reports: Other Problems/Disorders - NOCTURNAL INCONTINENCE Psychiatric History: Reports: Hx Anxiety, Hx Inpatient Treatment, Hx Community Mental Health Tx, Hx Schizophrenia Denies: Hx of Violent Episodes Against Others - Surgical History Surgery Procedure, Year, and Place: NO PRIOR SURGERIES NOTED. Infectious Disease History: No Infectious Disease History: Denies: Traveled Outside the [place] in Last 30 Days - Family History Known Family History: Negative: Diabetes - Social History Alcohol Use: None Substance Use Type: Reports: None Hx Tobacco Use: No Smoking Status (MU): Never Smoked Tobacco Review of Systems Positive: Cough Positive: Abdominal Pain - LUQ. Negative: Vomiting Positive: Other - right sided rib pain All Other Systems Reviewed And Are Negative: Yes Physical Exam - Summary Physical Exam Summary: Constitutional: Well-developed, Well-nourished, Alert. (-) Distressed Skin: Warm, Dry HENT: Normocephalic; Atraumatic Eyes: Conjunctiva normal Neck: Musculoskeletal ROM normal neck. (-) JVD, (-) Stridor, (-) Nuchal rigidity Cardio: Rhythm regular, rate normal, Heart sounds normal; Intact distal pulses; Radial pulses are 2+ and symmetric. (-) Murmur Pulmonary/Chest wall: Effort normal. (-) Respiratory distress, (-) Wheezes, (-) Rales Abd: Soft, (-) tenderness, (-) Distension, (-) Guarding, (-) Rebound Musculoskeletal: (-) Edema. Right greater than left anterior lower rib tenderness Neuro: Alert, Oriented x3 Psych: Mood and affect Normal Triage Information Reviewed: Yes Vital Signs On Initial Exam: Initial Vitals Temp Pulse Resp BP Pulse Ox 97.8 F 76 15 136/96 96 01/30/20 20:59 01/30/20 20:59 01/30/20 20:59 01/30/20 20:59 01/30/20 20:59 Vital Signs Reviewed: Yes Procedures - Sedation Patient Received Moderate/Deep Sedation with Procedure: No Diagnostics - Vital Signs Vital Signs Temp Pulse Resp BP Pulse Ox 01/30/20 20:59 97.8 F 76 15 136/96 96 - Laboratory Lab Statement: Any lab studies that have been ordered have been reviewed, and results considered in the medical decision making process. - Radiology CXR Radiology Interpretation Completed By: ED Physician - NO ACUTE PROCESS. PENDING OFFICIAL REPORT. RIBS X-RAY Radiology Interpretation Completed By: ED Physician Re-Evaluation - Re-Evaluation First Eval Re-Evaluation Time: 23:13 Comment: patient agrees to d/c, PCP f/u Back Pain Course/Dx - Course Course Of Treatment: 44 y/o male p/w R lower rib pain w cough intermittent worsening over past several days. - VSS NAD. Easy WOB on RA. PE w mild RUQ/R rib tenderness. Patient denies symptoms w eating, do not suspect biliary colic. Patient had workup for this back in August, with a relatively unremarkable CT and normal labs. Do not suspect acute process. Patient to follow-up with his primary care physician regarding further workup. CXR neg. Given tessalon pearls for cough. - Diagnoses Provider Diagnoses: Right-sided chest pain Discharge ED - Sign-Out/Discharge Documenting (check all that apply): Patient Departure - Discharge Plan Condition: Stable Disposition: HOME Prescriptions: Benzonatate CAP* [Tessalon 100 MG CAP*] 100 mg PO TID PRN 10 Days #30 cap PRN Reason: Cough Ibuprofen TAB* [Motrin TAB* 800 MG] 800 mg PO TID PRN 10 Days #30 tab PRN Reason: Pain - Moderate Patient Education Materials: Abdominal Pain (ED), Rib Contusion (ED) Referrals: Kolby Niño MD [Primary Care Provider] - Additional Instructions: You were seen in the emergency department for pain while coughing. You can take Motrin for this pain. You can take Tessalon Perles for cough.. Please follow up with your primary care doctor in next 2-3 days and return to emergency department for worsening pain, fevers, shortness of breath or concerning symptoms. It was a pleasure taking care of you today. - Billing Disposition and Condition Condition: STABLE Disposition: Home - Attestation Statements Document Initiated by Wilfredoibmamadou: Yes Documenting Scribe: Lisette He Provider For Whom Taylor is Documenting (Include Credential): Jennifer Cuenca MD Scribe Attestation: I, Lisette He, scribed for Jennifer Cuenca MD on 01/30/20 at 2326. Scribe Documentation Reviewed: Yes Provider Attestation: The documentation as recorded by the scribe, Lisette He accurately reflects the service I personally performed and the decisions made by me, Jennifer Cuenca MD Status of Scribe Document: Viewed
[2020-01-30] MEDS ORDERED: Lidocaine 2% VISCOUS* 15 ML UDC PO ONE (23:01)
[2020-01-30] MEDS ORDERED: Al Hydrox/Mg Hydrox/Simet LIQ* 30 ML UDC PO ONE (23:01)
[2020-01-30 23:15] VITALS: BP 145/97
== END 2020-01-30 23:13 | disposition home or self-care (01) ==
LOC: ED 20:57
DX: R07.81 Pleurodynia (principal); R07.89 Other chest pain; R10.12 Left upper quadrant pain; Z88.0 Allergy status to penicillin; Z79.899 Other long term (current) drug therapy
CPT/HCPCS: 71046; 99282; A9270-GY

== ENCOUNTER 2020-02-01 21:44 | Emergency (ER) | payer MEDICARE, MEDICAID ==
[2020-02-01 23:03] LABS: Urine Appearance Clear; Urine Bilirubin Negative (Negative); Urine Blood Negative (Negative); Urine Color Straw; Urine Glucose Negative (Negative); Urine Ketones Negative (Negative); Urine Nitrite Negative (Negative); Urine Protein Negative (Negative); Urine Specific Gravity 1.003 (1.010-1.030); Urine Urobilinogen Negative (Negative)
[2020-02-01 23:06] LABS: ABS Eosinophils 0.1 10^3/ul (0-0.6); ABS Lymphocytes 1.3 10^3/ul (1.0-4.8); ABS Monocytes 0.6 10^3/ul (0-0.8); ABS Neutrophils 3.7 10^3/ul (1.5-7.7); Hematocrit 45 % (42-52); Hemoglobin 15.9 g/dL (14.0-18.0); Lymphocyte % 23.2 %; Mean Corpuscular HGB Conc 36 g/dL (31-36); Mean Corpuscular Hemoglobin 31 pg (27-31); Mean Corpuscular Volume 86 fL (80-94); Mean Platelet Volume 7.6 fL (7.4-10.4); Nucleated Red Blood Cells % 0.1; Platelet Count 154 10^3/uL (150-450); Red Blood Count 5.19 10^6 /uL (4.18-5.48); Red Cell Distribution Width 13 % (10-15); White Blood Count 5.7 10^3/uL (3.5-10.8)
--- NOTE | 2020-02-01 23:09 | ED ---
GI/ HPI - HPI Summary HPI Summary: 44-year-old male presents with abdominal pain for the past couple months. He states pain has been in right upper quadrant. Pain is worse with movement. he states it is worst when he coughs. He states that he has had an intermittent cough. He occasionally gets pain in the left upper quadrant. Is worse when takes vitamin c and with certain foods. pain is worst when he bends down. He states that he was told he may need PT. he denies any fevers. No diarrhea. He admits to constipation. No urinary symptoms. No previous abd surgeries. - History of Current Complaint Chief Complaint: EDAbdPain Time Seen by Provider: 02/01/20 22:21 Stated Complaint: ABD PAIN Pain Intensity: 4 - Allergy/Home Medications Allergies/Adverse Reactions: Allergies Allergy/AdvReac Type Severity Reaction Status Date / Time ampicillin Allergy Rash Verified 02/01/20 21:47 Penicillins Allergy Hives Verified 02/01/20 21:47 Home Medications: Home Medications Sertraline* [Zoloft*] 100 mg PO DAILY 06/22/13 [History Confirmed 02/01/20] risperiDONE TAB* [Risperdal*] 2 mg PO DAILY 06/22/13 [History Confirmed 02/01/20 ] Paliperidone SUSTENNA* [Invega Sustenna*] 1 syringe IM WEEKLY 11/08/18 [History Confirmed 02/01/20] Benzonatate CAP* [Tessalon 100 MG CAP*] 100 mg PO TID PRN 10 Days #30 cap [Rx Confirmed 02/01/20] Ibuprofen TAB* [Motrin TAB* 800 MG] 800 mg PO TID PRN 10 Days #30 tab 01/30/20 [ Rx Confirmed 02/01/20] Omeprazole CAP (NF) [Prilosec CAP* 20 MG] 20 mg PO DAILY #14 cap. 02/02/20 [Rx ] PMH/Surg Hx/FS Hx/Imm Hx Endocrine/Hematology History: Denies: Hx Diabetes Cardiovascular History: Denies: Hx Hypertension Respiratory History: Denies: Hx Asthma History: Reports: Other Problems/Disorders - NOCTURNAL INCONTINENCE Psychiatric History: Reports: Hx Anxiety, Hx Inpatient Treatment, Hx Community Mental Health Tx, Hx Schizophrenia Denies: Hx of Violent Episodes Against Others - Surgical History Surgery Procedure, Year, and Place: NO PRIOR SURGERIES NOTED. Infectious Disease History: No Infectious Disease History: Denies: Traveled Outside the [place] in Last 30 Days - Family History Known Family History: Negative: Diabetes - Social History Alcohol Use: None Substance Use Type: Reports: None Hx Tobacco Use: No Smoking Status (MU): Never Smoked Tobacco Review of Systems Negative: Fever Negative: Chest Pain Negative: Shortness Of Breath Positive: Abdominal Pain. Negative: Vomiting, Diarrhea, Nausea All Other Systems Reviewed And Are Negative: Yes Physical Exam Triage Information Reviewed: Yes Vital Signs On Initial Exam: Initial Vitals Temp Pulse Resp BP Pulse Ox 98.5 F 72 15 124/93 96 02/01/20 21:45 02/01/20 21:45 02/01/20 21:45 02/01/20 21:45 02/01/20 21:45 Vital Signs Reviewed: Yes Appearance: Positive: Well-Appearing Skin: Positive: Warm, Dry Head/Face: Positive: Normal Head/Face Inspection Eyes: Positive: Normal, Conjunctiva Clear ENT: Positive: Pharynx normal Respiratory/Lung Sounds: Positive: Clear to Auscultation, Breath Sounds Present Cardiovascular: Positive: Normal, RRR Abdomen Description: Positive: Soft, Other: - tenderness in RUQ Bowel Sounds: Positive: Present Musculoskeletal: Positive: Normal Neurological: Positive: Normal Psychiatric: Positive: Normal Procedures - Sedation Patient Received Moderate/Deep Sedation with Procedure: No Diagnostics - Vital Signs Vital Signs Temp Pulse Resp BP Pulse Ox 02/01/20 21:45 98.5 F 72 15 124/93 96 - Laboratory Lab Results: Lab Results 02/01/20 02/01/20 Range/Units 22:30 22:53 WBC 5.7 (3.5-10.8) 10^3/uL RBC 5.19 (4.18-5.48) 10^6 /uL Hgb 15.9 (14.0-18.0) g/dL Hct 45 (42-52) % MCV 86 (80-94) fL MCH 31 (27-31) pg MCHC 36 (31-36) g/dL RDW 13 (10-15) % Plt Count 154 (150-450) 10^3/uL MPV 7.6 (7.4-10.4) fL Neut % (Auto) 65.2 % Lymph % (Auto) 23.2 % [place] % (Auto) 10.3 % Eos % (Auto) 1.0 % Baso % (Auto) 0.3 % Absolute Neuts (auto) 3.7 (1.5-7.7) 10^3/ul Absolute Lymphs (auto) 1.3 (1.0-4.8) 10^3/ul Absolute Monos (auto) 0.6 (0-0.8) 10^3/ul Absolute Eos (auto) 0.1 (0-0.6) 10^3/ul Absolute Basos (auto) 0.0 (0-0.2) 10^3/ul Absolute Nucleated RBC 0.0 10^3/ul Nucleated RBC % 0.1 Urine Color Straw Urine Appearance Clear Urine pH 6.0 (5-9) Ur Specific [place] 1.003 L (1.010-1.030) Urine Protein Negative (Negative) Urine Ketones Negative (Negative) Urine Blood Negative (Negative) Urine Nitrate Negative (Negative) Urine Bilirubin Negative (Negative) Urine Urobilinogen Negative (Negative) Ur Leukocyte Esterase Negative (Negative) Urine Glucose Negative (Negative) Result Diagrams: 02/01/20 22:53 02/01/20 22:53 Lab Statement: Any lab studies that have been ordered have been reviewed, and results considered in the medical decision making process. - Ultrasound No standard instances Ultrasound Interpretation Completed By: Radiologist Summary of Ultrasound Findings: IMPRESSION: Nonspecific hepatomegaly. No additional findings to correlate with patient's symptomatology. GIGU Course/Dx - Course Course Of Treatment: 44-year-old male presents with abdominal pain for the past couple months. He states pain has been in right upper quadrant. Pain is worse with movement. he states it is worst when he coughs. He states that he has had an intermittent cough. He occasionally gets pain in the left upper quadrant. Is worse when takes vitamin c and with certain foods. pain is worst when he bends down. He states that he was told he may need PT. he denies any fevers. No diarrhea. He admits to constipation. No urinary symptoms. No previous abd surgeries. On exam has minimal tenderness on right upper quadrant. wbc Normal. CRP normal. lfts is normal. Gallbladder ultrasound normal. discussed will place on course of omeprazole with pain related to food could be acid reflux. told follow up with primary. patient understand and agrees with plan. - Diagnoses Differential Diagnoses - Male: Gall Bladder Disease, Gastritis, Gastroenteritis (Viral) Provider Diagnoses: Epigastric pain Discharge ED - Sign-Out/Discharge Documenting (check all that apply): Patient Departure - Discharge Plan Condition: Good Disposition: HOME Prescriptions: Omeprazole CAP (NF) [Prilosec CAP* 20 MG] 20 mg PO DAILY #14 cap. Patient Education Materials: Epigastric Pain (ED) Referrals: Kolby Niño MD [Primary Care Provider] - Additional Instructions: Take omeprazole once a day Take tyenlol for pain every 6 hours Follow up GI if no improvement Return to ED if develop any new or worsening symptoms - Billing Disposition and Condition Condition: GOOD Disposition: Home
[2020-02-01 23:22] LABS: Albumin 4.4 g/dL (3.2-5.2); Albumin/Globulin Ratio 1.9 (1-3); BUN/Creatinine Ratio 20.4 (8-20); C Reactive Protein 2.32 mg/L (<8.01); Calcium 9.5 mg/dL (8.6-10.3); EGFR African American 107.3 (>60); EGFR Non-African American 88.7 (>60); Globulin 2.3 g/dL (2-4); Potassium 3.7 mmol/L (3.5-5.0); Total Bilirubin 0.6 mg/dL (0.2-1.0); Total Protein 6.7 g/dL (6.4-8.9)
[2020-02-02 00:54] VITALS: BP 118/79
== END 2020-02-02 00:46 | disposition home or self-care (01) ==
LOC: ED 21:44
DX: R10.13 Epigastric pain (principal); R05 Cough; F41.9 Anxiety disorder, unspecified; Z88.0 Allergy status to penicillin
CPT/HCPCS: 36415; 76705; 80053; 81003; 83690; 85025; 86140; 99283